=== PATIENT | male | born 1940 | race Caucasian/White ===

== ENCOUNTER 2016-07-31 03:14 | Day surgery (SDC) | payer MEDICARE, OTHER ==
[2016-07-31] VITALS (13 sets, daily range): BP systolic 130–151; BP diastolic 68–88; PULSE 74–93; RESP 16–18; O2SAT 98–99
[~2016-07-31] VITALS: Ht 172.7 cm; Wt 82.2 kg
[~2016-07-31 03:14] MED LIST: BENEDRYL PO; CALC500T9 PO; CLOT15CR5 TOPICAL; FRSM80T PO; KEN1O TOP; LIP40 PO; METO25TA6 PO; PEG31POW PO; SODI650T PO; TAMS0.4C98 PO
[2016-07-31 10:24] LABS: BASOPHILS % (AUTO) 1.1 % (0-3); EOSINOPHILS % (AUTO) 5.4 % (0-5); MONOCYTES % (AUTO) 9.7 % (4-12); Mean Corpuscular Volume 97.2 fL (81-100); NEUTROPHILS % (AUTO) 64.7 % (40-74); Platelet Count 234 bil/L (150-400)
[2016-07-31] MEDS ORDERED: ASPI-973 PO (10:38)
[2016-07-31] MEDS ORDERED: POTA20TA7 PO (10:38)
[2016-07-31] MEDS ORDERED: DIPH25CA6 PO (10:38)
[2016-07-31 10:39] LABS: INR 0.92 ratio
[2016-07-31] MEDS ORDERED: 0.9% Sodium Chloride 1,000 ML ONE (11:10)
[2016-07-31] MEDS ORDERED: Heparin 1,000 Unit/mL 10 mL Inj ONE (11:53)
[2016-07-31] MEDS ORDERED: Heparin 1,000 Units/500 mL NS Premix IV ONE (11:53)
[2016-07-31] MEDS ORDERED: Nitroglycerin 50,000 mcg/250 mL D5W Premix IV ONE (11:53)
[2016-07-31] MEDS ORDERED: Heparin 5,000 Units/500 mL NS Premix IV ONE (11:53)
[2016-07-31] MEDS ORDERED: fentaNYL-PF 50 mCg/mL 2 mL Inj ONE (11:58)
--- NOTE | 2016-07-31 13:08 | DI95 ---
[address] [address] INTERVENTIONAL CARDIAC CATHETERIZATION PATIENT: MAULIK DUNAWAY : 1940 MR#: [id number] ADMIT: 07/31/2016 JOB ID: [id number] DATE: 07/31/2016 PROCEDURES: 1. Selective right and left coronary angiography. 2. Left heart catheterization. 3. Left ventriculography. 4. Percutaneous intervention on the circumflex. INDICATION: Known coronary artery disease, in preparation for kidney transplant. PROCEDURAL DETAILS: The reader and the coders are referred to the procedure log. Briefly, right femoral approach 6-Bruneian system. Standard Juan catheters. FINDINGS: 1. Moderate calcification of the coronaries is noted on fluoroscopy. Previously placed stents are noted in the circumflex. 2. Left main: No significant disease. 3. LAD is mild to moderately calcified in its proximal segment. The proximal segment has a tubular stenosis of about 40% followed by a relatively normal segment. Further down, the mid LAD has another 30% plaquing. 4. Circumflex is a moderate caliber vessel. It has stents in its proximal to midportion. There is in-stent restenoses and roseanne-stent restenoses in the large obtuse marginal branch. The stenosis is about 80% in severity. 5. The right coronary artery is dominant. It has mild plaquing throughout. In the ostium, there is about 30% disease. There is catheter-induced damping which resolved a great deal with intracoronary nitroglycerin. No critical stenosis is noted in the right coronary artery. 6. Left heart catheterization revealed an LVEDP of 6. There was no gradient upon pullback. Hand injection suggested preserved contractility and an EF of greater than 60%. SUMMARY: In summary, this gentleman has in-stent restenosis in his circumflex. He has moderate disease in his right coronary and LAD. This is best treated medically. INTERVENTIONAL REPORT: We then proceeded ahead with an intervention of the circumflex. A Voda guide and a Runthrough wire were used. The lesion was pre-dilated with a 2.0 balloon and then stented with a 3.25 x 18 mm Xience drug-coated stent delivered at 18 atmospheres with excellent angiographic results. The patient is advised dual antiplatelet therapy for at least six months post procedure.
--- NOTE | 2016-07-31 16:54 | NUR ---
Pt transferred to [facility] room 2030. Pt's VSS, Rt groin puncture site CDI with no bleeding/hematoma noted. Report and pt handoff given to Jocelynn TRIPLETT.
--- NOTE | 2016-07-31 17:05 | NUR ---
Admit to [facility] Pt admitted to 2030 at aprox 1645. Pt AAOx4, denies pain. R groin site soft, no oozing, non-tender; +2 DP and PT pulses. SpO2 99% on RA. NSR 80s. BP 133/88. Oriented to call light use, fall precautions, menu, telephone and TV use. Pt updated on POC. Addendum: 07/31/16 at 1918 by PARRISH ZAMAN RN Home Meds Per JOYCE pt reported that he took his flomax, lasix and sodium bicarb medications from home pill bottles. JOYCE removed bottles from pt room and gave to this RN. This RN then called , no call back as of 1918. Medications taken to pharmacy and locked in safe.
[2016-07-31] MEDS ORDERED: 0.9% Sodium Chloride 1,000 ML IV PRN (18:24)
[2016-07-31] MEDS ORDERED: 0.9% Sodium Chloride 250 ML IV PRN (18:24)
[2016-07-31] MEDS ORDERED: Ondansetron 2 mg/mL 2 mL Inj IVPUSH PRN (18:25)
--- NOTE | 2016-07-31 18:31 | PCM.PNMED ---
Subjective Date of Service Jul 31, 2016 Subjective He is patient of Dr. Lang. He is on PD. I was asked to resume PD while being hospitalized. He underwent left and right heart cath with PCI and ARNIE of LCx Exam Vital Signs Vital Sign - Last Date Time Temp Pulse Resp B/P Pulse Ox O2 Delivery O2 Flow Rate FiO2 07/31/16 16:44 36.5 85 18 133/88 99 Room Air Exam GA: AAOx3, NAD. HEENT: no pallor, no icteric sclerae, atraumatic. Heart: RRR, normal S1/S2. Lungs: CTA, B/L. Abd: soft PD cath in place, dry clean and intact. Ext: no edema. Lab and Diagnostics Result Diagram: 07/31/16 1010 07/31/16 1010 Assessment & Plan 1. ESRD on PD Continuous cycler peritoneal dialysis. 1.5% dextrose, 2500 ml each cycle, 200 ml last fill. Total volume: 10,200 ml. 4 cycles, 9 hours. 2. s/p cardiac angiogram - PCI and ARNIE on LCX VTE Mechanical Devices: Intermittant Pneumatic CD Jacob Cantrell MD Jul 31, 2016 18:31
[2016-07-31] MEDS ORDERED: diphenhydrAMINE 25 mg Capsule PO PRN (18:45)
[2016-08-01 00:49] VITALS: BP 126/83; PULSE 98; RESP 18; O2SAT 96
[2016-08-01 04:33] VITALS: BP 148/85; PULSE 107; RESP 18; O2SAT 98
--- NOTE | 2016-08-01 06:16 | NUR ---
Headache/groin Pt c/o headache 02/14 administered Tylenol 975mg and effective. No further c/o headache. Pt had heart cath yesterday, RT groin site soft non-tender, no hematoma noted with distal pulses notable. VSS tele:SR 90's.
[2016-08-01] MEDS ORDERED: Polyethylene Glycol (PEG) 17 Gm Powder PO SCH (08:30)
[2016-08-01] MEDS ORDERED: MeTOProlol XL 50 mg ER24 Tablet PO SCH (08:30)
[2016-08-01 09:38] VITALS: PULSE 92
[2016-08-01 10:25] VITALS: BP 144/80; PULSE 91; RESP 16; O2SAT 98
[2016-08-01] MEDS: Calcium Carbonate (Oyster Shell) 500 mg Tablet PO SCH ×3 (10:29→16:48)
[2016-08-01 11:46] VITALS: BP 150/81; PULSE 85; RESP 20; O2SAT 99
[2016-08-01] MEDS ORDERED: Potassium Chloride 20 mEq SR Tablet PO SCH (16:30)
--- NOTE | 2016-08-01 16:36 | PCM.DIMED ---
Discharge Instructions Date of Service Aug 01, 2016 Dates of Hospitalization 07/31/2016 Discharge Diagnosis Discharge Diagnosis CAD, s/p ARNIE placement to circumflex artery, HTN, ESRD Medication Instructions Please take all medications as prescribed. Please make sure that you take Clopidogrel (Plavix) every day at least 6 months Diet Low fat, Low Sodium, Heart Healthy, Renal Diet Activity Other (Please see below) Call your provider Shortness of breath, Chest pain Patient Instructions Do not drive a car for couple of days; you can take shower starting today; do not soak in bath tub for one week; no heavy lifting, no more than 7-10 lb for one week; otherwise be physically active as tolerated. If you have chest pain, please call 911 and go to ER. Provider: Mariano Cronin MD Follow-up in: 6 weeks Mid-level Provider (F9): Phil Lezama PA-C Follow-up with Mid-level in: 2 weeks Phil Lezama PA-C Aug 01, 2016 16:36
[2016-08-01] MEDS ORDERED: ATOR40TA69 PO (16:52)
[2016-08-01] MEDS ORDERED: CLOP75TA28 PO (16:52)
[2016-08-01] MEDS ORDERED: NITR0.4T SL (16:52)
[2016-08-01] MEDS ORDERED: METO-272 PO (16:52)
--- NOTE | 2016-08-01 16:53 | PCM.DC.MED ---
Discharge Summary Date of Service Aug 01, 2016 Dates of Hospitalization Date of Hospital Admission 07/31/2016 Date of Discharge: Aug 01, 2016 Providers: Admitting Physician: Primary Care Physician: Dian Silva MD Attending Physician: Mariano Cronin MD Diagnosis at Time of Discharge Diagnosis at Time of Discharge CAD, s/p ARNIE placement to circumflex artery (07/31/2016), HTN, Hyperlipidemia, ESRD, on peritoneal dialysis Brief History This is a very pleasant 76 y/o gentleman with hx of CAD, HTN, HLD, ESRD on peritoneal dialysis. He was referred to transplant service and they are contemplating kidney transplant. He was seen by a [facility] pharmacy associate who recommended an angiogram. The patient preferred to have his angiogram performed at [facility]. Hospital Course The patient had elective cardiac catheterization done on 07/31/2016 which showed that Circumflex was a moderate caliber vessel and had stents in its proximal to midportion. There was in-stent restenosis and roseanne-stent restenosis in the large obtuse marginal branch. The stenosis was about 80% in severity and it was successfully treated by ARNIE placement. He also has moderate disease in his right coronary and LAD which was advised that it was the best to treat it medically. The procedure was done by right femoral approach. For more details please refer to [employer] Dr. Muñoz procedure report. The patient tolerated procedure well. Denies having any chest pain/pressure/ discomfort or SOB/KEY; denies orthopnea or PND; denies having palpitations. Right groin area is nontender with palpation; there is small hematoma, no bruits with auscultation. The patient ambulates freely. On telemetry sinus rhythm, no dysrhythmia I explained to the patient that he needs to take Plavix every day at least six months as Dr. Cronin recommended. The patient has been having chronic, on and off, papular localized rash with pruritus around his peritoneal dialysis tube and also on the back two small localized areas on each scapula. The patient tells me that he told his mass spectroscopist about it. Medications on discharge are below. Exam Vital Signs (Last) Date Time Temp Pulse Resp B/P Pulse Ox O2 Delivery O2 Flow Rate FiO2 08/01/16 11:46 36.6 85 20 150/81 99 Room Air Exam General: no ACD ENT: scleare unicteric, mucous membranes moist Neck: supple, no thyromegaly Pulmo: Normal breathing sounds bilaterally, no crackles, no wheezing Cardiovascular: RRR, normal S1&S2, No murmur appreciated, JVP is not elevated Abdomen: nontender with palpationlk Extremities: no LE edema Skin: papular localized rash with pruritus around his peritoneal dialysis tube and also on the back two small localized areas on each scapula Neuro: A&Ox3, no gross abnormalities Test 07/31/16 10:10 08/01/16 04:30 White Blood Count 7.4th/mm3 (3.8-10.1) Red Blood Count 4.28mil/mm3 (4.40-5.80) Hemoglobin 13.7g/dL (13.8-17.2) Hematocrit 41.6% (41.0-50.0) Mean Corpuscular Volume 97.2fL (81-100) Mean Corpuscular Hemoglobin 32.0pg (27.0-35.0) Mean Corpuscular Hemoglobin Concent 32.9% (32.0-37.0) Red Cell Distribution Width 14.4% (12.3-15.4) Platelet Count 234bil/L (150-400) Neutrophils (%) (Auto) 64.7% (40-74) Lymphocytes (%) (Auto) 18.8% (14-46) Monocytes (%) (Auto) 9.7% (4-12) Eosinophils (%) (Auto) 5.4% (0-5) Basophils (%) (Auto) 1.1% (0-3) Prothrombin Time 9.8sec (8.1-12.5) Prothromb Time International Ratio 0.92ratio Sodium Level 136mEq/L (134-144) Potassium Level 4.1mEq/L (3.5-5.2) Chloride Level 100mEq/L (97-108) Carbon Dioxide Level 21mmol/L (18-29) Blood Urea Nitrogen 47mg/dL (8-27) Creatinine 7.87mg/dL (0.76-1.27) Estimat Glomerular Filtration Rate 7mL/min (>59) Glucose Level 95mg/dL (60-99) Calcium Level 8.0mg/dL (8.5-10.1) Discharge Medications Discharge Medications Aspirin (Aspirin) 81 Mg Tablet 81 MG PO DAILY (Reported) Atorvastatin Calcium (Atorvastatin Calcium) 40 Mg Tablet 40 MG PO HS Prescribed by: POOL BURT Clopidogrel (Clopidogrel) 75 Mg Tablet 75 MG PO DAILY Prescribed by: POOL BURT Furosemide (Furosemide) 80 Mg Tab 80 MG PO DAILY (Reported) Metoprolol Succinate ER (Metoprolol Succinate ER) 50 Mg Tab.er.24h 50 MG PO DAILY Prescribed by: POOL BURT Orb0104/Sod Sul/NaCl/Asb/C/KCl (Moviprep Powder Packet) 1 Each Powd.pack 1 EACH PO DAILY (Reported) Potassium Chloride ER (Klor-Con M20) 20 Meq Tablet 40 MEQ PO DAILY (Reported) Sodium Bicarbonate (Sodium Bicarbonate) 650 Mg Tablet 1,300 MG PO BID (Reported ) Tamsulosin (Flomax) 0.4 Mg Capsule 0.4 MG PO BID (Reported) As needed Calcium Carbonate (Tums) 500 Mg Tab.chew 1,000 MG PO TID PRN PRN CALCIUM RPLCMT (Reported) Nitroglycerin SL (Nitrostat) 0.4 Mg Tab.subl 0.4 MG SL Q5MIN PRN PRN For Chest Pain When have chest pain, take one tablet under tounge every 5 min max 3 times and call 911. Prescribed by: POOL BURT Miscellaneous Medications diphenhydrAMINE HCl (Benadryl) 25 Mg Capsule 25 MG PO (Reported) Additional med instructions Please take all medications as prescribed. Please make sure that you take Clopidogrel (Plavix) every day at least 6 months Followup Plan Discharge Diet: Low fat, Low Sodium, Heart Healthy, Renal Diet Discharge Activity: Other (Please see below) Patient Instructions Do not drive a car for couple of days; you can take shower starting today; do not soak in bath tub for one week; no heavy lifting, no more than 7-10 lb for one week; otherwise be physically active as tolerated. If you have chest pain, please call 911 and go to ER. Provider: Mariano Cronin MD Follow-up in: 6 weeks Mid-level Provider: Phil Lezama PA-C Follow-up with Mid-level in: 2 weeks Phil Lezama PA-C Aug 01, 2016 16:53
--- NOTE | 2016-08-01 17:53 | NUR ---
Discharge Patient ambulated off unit with PAYROLL TECHNICIAN in a stable condition. IV DC'd intact x2, tele removed, all personal belongings with patient. New medications of Plavix, Atorvastatin, Metoprolol and Nitroglycerin discussed with next due dates and possible side effects -- patient verbalized understanding. All continued medications discussed with their next due doses -- patient verbalized understanding. Follow up with Cardiology made for August 17.
== END 2016-08-01 18:15 | disposition home or self-care (01) ==
LOC: SOUO 03:14 → PCC 16:55 → SOUO 08-01 18:15
PROVIDERS: ATTEND Internal Medicine Cardiovascular Disease
DX: Z01.810 Encounter for preprocedural cardiovascular examination (principal); T82.855A Stenosis of coronary artery stent, initial encounter; Z76.82 Awaiting organ transplant status; N18.6 End stage renal disease; I12.0 Hypertensive chronic kidney disease with stage 5 chronic kidney disease or end stage renal disease; Y84.8 Other medical procedures as the cause of abnormal reaction of the patient, or of later complication, without mention of misadventure at the time of the procedure; Z87.891 Personal history of nicotine dependence; Z99.2 Dependence on renal dialysis; E78.5 Hyperlipidemia, unspecified
CPT/HCPCS: 36415; 80048; 85025; 85610; 93005; 93458; 99152; 99153; C1725; C1760; C1769; C1874; C1887; C9600; J1200; J1644; J2060; J2250; J3010; J7030; Q9967

== ENCOUNTER 2017-01-10 07:42 | Day surgery (SDC) | payer MEDICARE, OTHER ==
[~2017-01-10] VITALS: Ht 172.7 cm; Wt 80.0 kg
[~2017-01-10 07:42] MED LIST changes: +ASPI-973 PO; +ATOR40TA69 PO; -BENEDRYL PO; -CALC500T9 PO; +CLOP75TA28 PO; -CLOT15CR5 TOPICAL; +DIPH25CA6 PO; +FINA5TAB9 PO; +HYDR-656 PO; -KEN1O TOP; -LIP40 PO; +METO-272 PO; -METO25TA6 PO; +NITR0.4T SL; -PEG31POW PO; +POTA20TA7 PO
[2017-01-10] MEDS ORDERED: Propofol 10,000 mCg/mL 20 mL Inj ONE (07:43)
[2017-01-10 08:03] VITALS: BP 122/65; PULSE 63; RESP 16; O2SAT 100
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
[2017-01-10] MEDS: Lactated Ringer's 1,000 ML IV ONE ×2 (09:10→09:20)
[2017-01-10 09:26] VITALS: BP 112/55; PULSE 61; RESP 14; O2SAT 95
--- NOTE | 2017-01-10 09:28 | PCM.ANEP1 ---
Post Anesthesia PACU Phase 1 Assessment Vital Signs Vital Signs Date Time Temp Pulse Resp B/P Pulse Ox O2 Delivery O2 Flow Rate FiO2 01/10/17 09:26 61 14 112/55 95 Room Air 01/10/17 08:03 36.0 63 16 122/65 100 Room Air Anesthetic Administered: GA Level of Alertness: Awake, talking MARTINEZ's with Equal Strength: Yes Pain: No Nausea or Vomiting: No CV Function & Hydration Stable: Yes Airway Device: Oxygen Delivery: Nasal Cannula Lungs: Clear to Auscultation PACU Phase 2 Assessment Complications: No Follow up Care: No Patient Instructions Provided: N/A Davide Shirley MD Jan 10, 2017 09:28
[2017-01-10 09:36] VITALS: BP 117/59; PULSE 59; RESP 16; O2SAT 95
--- NOTE | 2017-01-10 09:38 | ENDO ---
[address] [address] ENDOSCOPY PROCEDURE PATIENT: MAULIK DUNAWAY : 1940 MR#: [id number] ADMIT: 01/10/2017 JOB ID: [id number] DATE: 01/10/2017 PROCEDURE: Colonoscopy. INDICATION: Screening. The patient's ASA classification, Mallampati score, and medications as per Dr. Clifton Shirley's anesthesia report. INSTRUMENT USED: PCF H 190. PREPARATION QUALITY: Was good. PROCEDURE DETAILS: After informed consent was obtained, the patient was brought into the GI suite, where he was placed on oxygen via nasal cannula and monitored with continuous pulse oximeter, telemetry and blood pressure monitoring. A time-out was performed. Then, he was placed in the left lateral decubitus position and medications were administered for sedation. A digital rectal examination was performed, which was unremarkable. The colonoscope was then inserted into the rectum and advanced under direct visualization to the cecum, which was identified by the presence of the ileocecal valve and appendiceal orifice. Once the cecum was reached, the colonoscope was withdrawn back into the rectum as the mucosa and lumen were examined. In the rectum, retroflexion was performed. Following retroflexion, remaining air in the rectum was suctioned, and the procedure was completed. FINDINGS: 1. In the transverse colon, there was a diminutive polyp that was removed with cold biopsy forceps. 2. Retroflexed views in the rectum revealed [id number] internal hemorrhoids. IMPRESSION: 1. Transverse colon polyp. 2. Internal hemorrhoids. RECOMMENDATIONS: 1. Fiber rich diet. 2. Repeat colonoscopy in five years. COMPLICATIONS: None. ESTIMATED BLOOD LOSS: Less than 5 mL.
[2017-01-10 09:46] VITALS: BP 126/64; PULSE 60; RESP 16; O2SAT 100
--- NOTE | 2017-01-17 09:31 | PATH ---
SURGICAL PATHOLOGY Attending Physician:Mahesh Sumner CASE STATUS: Signed Out PATIENT NAME: MAULIK DUNAWAY PID: [id number] : 1940 DATE COLLECTED:01/10/2017 15:48 SPECIMEN: Colon, Polyp CLINICAL HISTORY: 1. TRANSVERSE COLON POLYP FINAL DIAGNOSIS: Transverse Colon, Polyp, Biopsy: Portion of tubular adenoma x1; negative for high-grade dysplasia. Superficial portions of colorectal mucosa x4 with no diagnostic abnormality. ICD10: K63.5 GROSS DESCRIPTION: The specimen is received in formalin, labeled with the patient's name, sublabeled as transverse colon polyp, and consists of multiple fragments of fortune-white glistening translucent tissue (0.6 x 0.2 x 0.1 cm in aggregate). Section code: (A) tissue. Specimen entirely submitted. 01/10/17 ICD-9 CODES: CPT CODES: 1: 29358 Electronically Signed Out Liliana Mcgraw MD [facility] [address], [place] [address] Technical component performed at [facility], [facility] [address], [place], [address]
== END 2017-01-10 23:59 | disposition home or self-care (01) ==
LOC: END 07:42
PROVIDERS: ATTEND Internal Medicine Gastroenterology
DX: Z12.11 Encounter for screening for malignant neoplasm of colon (principal); D12.3 Benign neoplasm of transverse colon; I25.10 Atherosclerotic heart disease of native coronary artery without angina pectoris; I12.0 Hypertensive chronic kidney disease with stage 5 chronic kidney disease or end stage renal disease; N18.6 End stage renal disease; N02.2 Recurrent and persistent hematuria with diffuse membranous glomerulonephritis; Z95.5 Presence of coronary angioplasty implant and graft; Z79.02 Long term (current) use of antithrombotics/antiplatelets; Z79.82 Long term (current) use of aspirin; K64.8 Other hemorrhoids; Z87.891 Personal history of nicotine dependence; Z99.2 Dependence on renal dialysis
CPT/HCPCS: 45380; 88305; J7120